=== PATIENT | male | born 1955 | race Caucasian/White ===

== ENCOUNTER 2018-05-25 14:51 | Inpatient (IN) | payer SELFPAY ==
[2018-05-25 15:48] LABS: #Basophils 0.1 thou/uL (0.0-0.2); #Eosinphils 0.1 thou/uL (0.0-0.7); #Lymphocytes 3.2 thou/uL (1.20-3.40); #Monocytes 0.7 thou/uL (0.11-0.59); #Neutrophils 8.6 thou/uL (1.40-6.50); %Basophils 0.8 % (0.0-1.0); %Eosinophils 0.7 % (0.0-10.0); %Monocytes 5.3 % (0.0-10.0); %Neutrophils 68.1 % (42.0-75.0); Hemoglobin 16.1 g/dL (14.0-18.0); Mean Corpuscular HGB CONC 34.1 g/dL (32.0-36.0); Mean Corpuscular Hemoglobin 31.1 pg (27.0-31.0); Mean Platelet Volume 8.5 fL (7.4-10.4); Platelet Count 328 thou/uL (130-400); RBC Distribution Width 12.2 % (11.5-14.5); Red Blood Cell (RBC) Count 5.17 mill/uL (4.70-6.10); White Blood Cell (WBC) Count 12.7 thou/uL (4.8-10.8)
[2018-05-25] MEDS ORDERED: Nitroglycerin 0.4 MG TAB (25 Tab Bottle) ONE (16:03)
[2018-05-25] MEDS ORDERED: Nitroglycerin 2% Ointment 1 INCH/1 GM Packet ONE (16:03)
[2018-05-25 16:14] LABS: ALT (SGPT) 15 U/L (8-55); AST (SGOT) 35 U/L (5-34); Albumin 4.3 g/dL (3.5-5.0); Alkaline Phosphatase 73 U/L (40-150); Anion Gap 12 mmol/L (10-20); BUN (Urea Nitrogen) 15 mg/dL (8.4-25.7); Bilirubin, Total 0.8 mg/dL (0.2-1.2); Calc. Creatinine Clearance 0 mL/min (70-130); Carbon Dioxide 23 mmol/L (22-29); Chloride 109 mmol/L (98-107); Estimated GFR-MDRD 71; Globulin 3.3 g/dL (2.4-3.5); Glucose 87 mg/dL (70-105); Potassium 4.1 mmol/L (3.5-5.1); Protein, Total 7.6 g/dL (6.0-8.3); Sodium 140 mmol/L (136-145)
[2018-05-25 16:20] LABS: Troponin I 1.325 ng/mL (< 0.028)
[2018-05-25] MEDS ORDERED: Iopamidol 370 76% 100 ML VIAL ONE (16:20)
[2018-05-25] MEDS ORDERED: Senokot S 8.6-50 MG TAB PO PRN (17:19)
[2018-05-25] MEDS ORDERED: Ondansetron PF 4 MG/2 ML Vial IVP PRN (17:19)
[2018-05-25 18:21] VITALS: BMI 29.2
[2018-05-25 19:21] LABS: Troponin I 7.081 ng/mL (< 0.028)
[2018-05-25] MEDS: Nitroglycerin 0.4 MG TAB (25 Tab Bottle) SL PRN ×2 (19:24→19:34)
[2018-05-25] MEDS ORDERED: Nitroglycerin 2% Ointment 1 INCH/1 GM Packet TOP SCH (20:00)
[2018-05-25] MEDS ORDERED: Clopidogrel Bisulfate 300 MG TAB PO SCH (20:00)
--- NOTE | 2018-05-25 20:03 | HP ---
PRIMARY CARE PROVIDER: None. CHIEF COMPLAINT: Chest pain. HISTORY OF PRESENT ILLNESS: Mr. Gomez is a pleasant 62-year-old gentleman, who was seen at [facility] on May 25, 2018, following transfer from the emergency room at [place]. He reports that he has a history of high blood pressure. He started eating more healthy over the last 5 months. He was on a blood pressure medication before and noticed that his blood pressure was dropping. He stopped taking the blood pressure medication. He also stopped drinking beer and eating chips. He reports that he lost weight from 232 pounds to 192 pounds over the last 5 months. He denies any tobacco use, alcohol use, or recreational drug use. He reports that he recently started using testosterone supplement [id number]. Two nights ago, he woke up with chest pain. He called EMS. He reports that the chest pain resolved. Today morning, he started having the chest pain again. He describes it as over the retrosternal region and to the right, nonradiating, pressure like, 7/10 at its worst, currently he is pain free. He denies any nausea or vomiting, but reports labored breathing with the chest pain. He is unable to recall any aggravating or relieving factors for the chest pain. He reports that he also had tingling of hands when he had the chest pain. REVIEW OF SYSTEMS: All other systems reviewed and found to be negative. PAST MEDICAL HISTORY: Significant for hypertension. PAST SURGICAL HISTORY: None. SOCIAL HISTORY: The patient denies tobacco use, alcohol use, or recreational drug use. FAMILY HISTORY: He reports that several family members on his mother's side of family had heart disease. ALLERGIES: NO KNOWN DRUG ALLERGIES. CURRENT MEDICATIONS: None. PHYSICAL EXAMINATION: GENERAL: On examination, Mr. Gomez is awake and alert, not in acute distress. VITAL SIGNS: Blood pressure is 153/93 on the left arm and 154/82 on the right arm. Pulse is 55. He is breathing at rate of 16 and saturating 99% on room air. He is afebrile. EYES: No scleral icterus. No conjunctival pallor. ENT: Moist mucosal membranes. No oropharyngeal erythema or exudates. NECK: Supple, nontender. Trachea is midline. RESPIRATORY: Accessory muscles of breathing are not active. Chest wall movements are symmetric bilaterally. Lungs are clear to auscultation without wheeze, rhonchi, or crepitations. CARDIOVASCULAR: S1 and S2 are heard, regular. Peripheral pulses palpable. No carotid bruits. No pericardial rub. ABDOMEN: Soft, nontender. Bowel sounds heard. No hepatomegaly. No splenomegaly. NEUROLOGIC: Cranial nerves 2 through 12 intact. Deep tendon reflexes 2+. MUSCULOSKELETAL: Power is 5/5 in all 4 extremities. Normal range of movement at all major extremity joints. No reproducible chest wall tenderness. SKIN: No rashes or subcutaneous nodules. LYMPHATICS: No cervical lymphadenopathy. PSYCHIATRIC: Normal mood, normal affect, the patient is oriented to person, place, and time. LABS AND INVESTIGATIONS: Mr. Gomez's labs and investigations were reviewed. I reviewed his electrocardiogram, which shows sinus bradycardia, no ST changes to suggest an acute coronary syndrome. I also reviewed his chest x-ray, which does not show any pulmonary infiltrates. He has leukocytosis with 12,700 white cells, of which 68% are neutrophils. INR 1.0. Normal sodium, normal potassium, normal creatinine; elevated troponin I of 1.325 at 1527 hours, increased from 0.266 at 1110 hours today; elevated AST of 35, otherwise unremarkable liver profile; and elevated D-dimer of 0.60. ASSESSMENT AND PLAN: Mr. Gomez is a pleasant 62-year-old gentleman, who was seen at [facility] on May 25, 2018. His problem list includes: 1. Chest pain: Most likely cardiac, although pulmonary embolism will also need to be ruled out given his elevated D-dimer. The patient has already received a dose of Lovenox, which I will continue. We will also continue him on aspirin. The patient will be admitted to the hospital for telemetry monitoring. Cardiology Service will be consulted for opinion and help with management. 2. Leukocytosis: No clear source of infection. We will continue to monitor for fever, etc. 3. Elevated D-dimer: We will check CT angiogram to rule out pulmonary embolism. 4. Hypertensive urgency: When the patient initially was transferred to this emergency room, his blood pressure was 182/98. It has improved since then. We will add p.r.n. blood pressure medications. We will also start him on beta-jaron. The patient reports intolerance to otxxcypnudn-fiqwihxyxf-qrgosa inhibitor in the past. LEVEL OF RISK: High. LEVEL OF COMPLEXITY: High. Job ID: [id number]
[2018-05-25] MEDS: Acetaminophen 325 MG TAB PO PRN (20:59)
[2018-05-25] MEDS ORDERED: Metoprolol Tartrate 25 MG TAB PO SCH (21:00)
[2018-05-25] MEDS: Atorvastatin Calcium 40 MG TAB PO SCH (21:00)
[2018-05-25] MEDS ORDERED: Enoxaparin Sodium 100 MG/ML SYRINGE SC SCH (21:00)
--- NOTE | 2018-05-25 21:23 | CT ---
CTA OF THE CHEST WITH CONTRAST 05/25/18 COMPARISON: None. HISTORY: Chest pain three days ago that resolved and started again today. Elevated troponin. TECHNIQUE: Multiple contiguous axial images were obtained in a CTA of the chest with contrast per pulmonary embo lism protocol. 3D oblique MIP reformats and direct coronal reformats were performed. FINDINGS: The pulmonary arteries are well opacified without filling defects to suggest pulmonary emboli. The he art is normal in size without focal cardiac abnormality. No hilar or mediastinal lymphadenopathy are seen. There is a calcified granuloma in the right lung base. No suspicious pulmonary nodules are seen. No f ocal infiltrates are seen in the lungs. No pneumothorax or pleural effusions are seen. The visualized subdiaphragmatic structures are unremarkable. Degenerative changes are seen in the spi ne. The chest wall soft tissues are unremarkable. IMPRESSION: No evidence of pulmonary embolism. POS: ALFONZO
[2018-05-25 22:25] LABS: Amphetamine Not Detected (NotDetected); Barbiturates Screen Not Detected (NotDetected); Benzodiazepine Screen Not Detected (NotDetected); Cocaine Metabolite Screen Not Detected (NotDetected); Medtox Control Line Valid? VALID (VALID); Medtox Reader # READER 1; Methadone Not Detected (NotDetected); Methamphetamine Not Detected (NotDetected); Opiate Screen Not Detected (NotDetected); Oxycodone Screen Not Detected (NotDetected); Phencyclidine (PCP) Not Detected (NotDetected); THC/Cannabinoid Screen Detected (NotDetected); Tricyclic Screen Not Detected (NotDetected)
[2018-05-25 22:39] LABS: Troponin I 11.147 ng/mL (< 0.028)
[2018-05-25] MEDS ORDERED: Melatonin 3 MG TAB PO PRN (22:50)
[2018-05-26] MEDS: Acetaminophen 325 MG TAB PO PRN ×3 (00:53→17:53)
[2018-05-26 05:03] LABS: #Basophils 0.1 thou/uL (0.0-0.2); #Eosinphils 0.2 thou/uL (0.0-0.7); #Lymphocytes 2.5 thou/uL (1.20-3.40); #Monocytes 0.9 thou/uL (0.11-0.59); #Neutrophils 9.3 thou/uL (1.40-6.50); %Basophils 0.7 % (0.0-1.0); %Eosinophils 1.5 % (0.0-10.0); %Lymphocytes 19.1 % (21.0-51.0); %Monocytes 6.7 % (0.0-10.0); Hemoglobin 15.1 g/dL (14.0-18.0); Mean Corpuscular HGB CONC 34.2 g/dL (32.0-36.0); Mean Corpuscular Hemoglobin 31.3 pg (27.0-31.0); Mean Corpuscular Volume 91.3 fL (78.0-98.0); Mean Platelet Volume 8.7 fL (7.4-10.4); Platelet Count 306 thou/uL (130-400); RBC Distribution Width 12.2 % (11.5-14.5); Red Blood Cell (RBC) Count 4.82 mill/uL (4.70-6.10); White Blood Cell (WBC) Count 12.9 thou/uL (4.8-10.8)
[2018-05-26 05:29] LABS: Troponin I 12.334 ng/mL (< 0.028)
[2018-05-26 05:41] LABS: Anion Gap 13 mmol/L (10-20); Chloride 109 mmol/L (98-107); Potassium 4.2 mmol/L (3.5-5.1); Sodium 139 mmol/L (136-145)
[2018-05-26 05:55] LABS: BUN (Urea Nitrogen) 13 mg/dL (8.4-25.7); Calc. Creatinine Clearance 105 mL/min (70-130); Calcium 9.5 mg/dL (7.8-10.44); Carbon Dioxide 21 mmol/L (22-29); Cardiac Risk 8.1 (Less than 4.5); Cholesterol 195 mg/dl (< 200 Desired); Estimated GFR-MDRD 84; Glucose 106 mg/dL (70-105); HDL Cholesterol 24 mg/dL (>60 Neg Risk); LDL Cholesterol, Calculated 125 mg/dL; Magnesium 2.1 mg/dL (1.6-2.6); Triglycerides 229 mg/dL (Less than 150)
[2018-05-26] MEDS ORDERED: Sodium Chloride 0.9% 1,000 ML IV SCH ×2 (07:45→11:04)
[2018-05-26] MEDS ORDERED: Communication Order-Pharmacy FS SCH (07:45)
[2018-05-26] MEDS: Aspirin 325 mg Enteric Coated Tablet PO SCH (08:07)
[2018-05-26] MEDS: Lisinopril 2.5 MG TAB PO SCH (08:07)
[2018-05-26] MEDS ORDERED: Lidocaine 1% (PF) 30 ML VIAL ONE (08:50)
[2018-05-26] MEDS ORDERED: Heparin 10,000 UNITS/1 ML VIAL ONE (08:57)
[2018-05-26] MEDS ORDERED: Nitroglycerin 2% Ointment 1 INCH/1 GM Packet TOP SCH (09:00)
[2018-05-26] MEDS ORDERED: Clopidogrel Bisulfate 75 MG TAB PO SCH (09:00)
[2018-05-26] MEDS ORDERED: Midazolam HCl 2 mg/2 ml Vial ONE (09:54)
[2018-05-26] MEDS ORDERED: Fentanyl 100 MCG/2 ML VIAL ONE (09:54)
[2018-05-26] MEDS ORDERED: Iopamidol 370 76% 50 ML VIAL FS ONE (09:56)
[2018-05-26] MEDS ORDERED: Iopamidol 370 76% 100 ML VIAL ONE (09:56)
[2018-05-26] MEDS ORDERED: Protamine Sulfate 50 MG/5 ML VIAL ONE (10:40)
[2018-05-26] MEDS ORDERED: Acetaminophen/Codeine 30-300mg Tablet PO PRN ×2 (11:03)
[2018-05-26] MEDS ORDERED: Nitroglycerin 0.4 MG TAB (25 Tab Bottle) SL PRN (11:03)
[2018-05-26] MEDS ORDERED: traMADol HCl 50 MG TAB PO PRN (11:03)
[2018-05-26] MEDS ORDERED: Sodium Chloride 0.9% 200 ML IV SCH (11:15)
--- NOTE | 2018-05-26 11:18 | CON ---
DATE OF CONSULTATION: HISTORY OF PRESENT ILLNESS: Rene Gomez is a 62-year-old white male admitted with chest pain and non-STEMI. He has had high blood pressure for many years and was on verapamil 180 b.i.d. He stopped drinking beer and eating salty foods, and lost weight from 232 down to 192 pounds. He then noticed 5 or 6 months ago that he would have low blood pressure. He reduced the verapamil to 180 daily, and then one half of the tablet daily and ultimately stopped blood pressure medicine 5 months ago. He has not had any chest discomfort until 3:30 in the morning on May 24 when he awoke with chest pressure. Blood pressure was high, and he took one of his blood pressure medicines. After 45 minutes, he continued to have pain, called paramedics and they came to his house and his chest pain resolved. They recommended that he go to emergency room; however, he refused to go. He did fine the rest of May 24. Then, on May 25, he did his usual workout, took a shower , and was drinking coffee and again had same type of discomfort. He called paramedics and this time, he agreed to go to emergency room in [place]. He was see there and then transferred here for further evaluation. There were no acute changes on his EKG. With his chest discomfort, he was somewhat short of breath. Denied any nausea, vomiting, or diaphoresis. Last night, he again had episode of chest discomfort, relieved with sublingual nitroglycerin. PAST MEDICAL HISTORY: Hypertension. He denies any history of diabetes or hypercholesterolemia. MEDICATIONS: Essentially none, although would take verapamil over the last couple of days when he had chest discomfort, his blood pressure was elevated. OPERATIONS: None. ALLERGIES: NONE. SOCIAL HISTORY: He smoked for 4 to 5 years, stopped 30 years ago. He does not drink any alcohol at the present time. FAMILY HISTORY: Negative for coronary artery disease in the immediate family. REVIEW OF SYSTEMS: A 12-point review of systems otherwise is unremarkable. PHYSICAL EXAMINATION: VITAL SIGNS: Blood pressure 132/80, pulse of 58. At times, he does have heart rates in the upper 40s and has had an episode of non-sustained ventricular tachycardia of 17 beats. HEENT: PERRLA. NECK: Supple. CHEST: Clear. CARDIAC: S1 and S2 normal without any S3, S4, or murmurs. Carotid upstrokes normal without bruits. ABDOMEN: Normal bowel sounds without tenderness. EXTREMITIES: Reveal no clubbing, cyanosis, or edema. NEUROLOGICAL: Grossly intact. SKIN: Warm and dry. There is a lipoma over the thoracic spine approximately 1 centimeter in diameter. LABORATORY DATA: EKG in [place] revealed normal sinus rhythm with poor R- wave progression, slightly inverted T-wave in leads 3 and F. Subsequent EKGs here revealed sinus bradycardia with the development of inverted T-wave in 2, 3, and F. Hemoglobin 15.1, hematocrit 44.0, white count 12,900, platelets 306,000. D- dimer 0.60. Sodium 139, potassium 4.9, chloride 109, carbon dioxide 21, BUN 13, creatinine 0.92, glucose 106, troponin I is up to 12.334, cholesterol 195, triglycerides 229, HDL 24, LDL 25. CK-MB 32. Chest x-ray is unremarkable. With the elevated D-dimer, he underwent chest CTA which revealed no evidence of pulmonary embolism. IMPRESSION: 1. Non-sustained ventricular tachycardia. 2. NSTEMI, probably inferior with peak troponin I of 12.334. 3. Hypertension, somewhat noncompliant with medications. 4. Hypercholesterolemia. 5. Hypertriglyceridemia. 6. Distant smoker. PLAN: Situation was discussed with Mr. Gomez. It was recommended that he undergo cardiac catheterization today with an episode of chest discomfort last night as well as non-sustained ventricular tachycardia. Risk of catheterization were discussed including , myocardial infarction, dye reaction, accidental vascular injury , CVA, transfusion, limb loss, renal loss, etc. Risk of intervention with PTCA and stent placement were discussed including , myocardial infarction, emergent CABG, restenosis, stent thrombosis, etc. With his noncompliance with medications and lack of insurance, I would only place a bare-metal stent. Ideally, with non-STEMI, Brilinta would be his best choice. However, I doubt that he would be able to afford this medication and so he will be placed on Plavix. He did receive a dose of Lovenox 1 mg/kg last night at 9 p.m. and so we want to wait at least 12 hours after that prior to taking him to the [employer] [facility]. Job ID: [id number] [facility] HOSPITALYennifer
--- NOTE | 2018-05-26 12:26 | PDOC.PN ---
- Subjective Encounter Start Date: 05/26/18 Encounter Start Time: 07:00 Pt seen for followup re: NSTEMI. Denies any chest pain at this time. - Objective MAR Reviewed: Yes Vital Signs & Weight: Vital Signs (12 hours) Temp Pulse Resp BP Pulse Ox 05/26/18 11:52 98.0 F 56 L 18 153/81 H 97 05/26/18 11:03 53 L 16 153/81 H 98 05/26/18 08:07 58 L 05/26/18 08:04 98.9 F 58 L 18 135/78 97 05/26/18 03:00 97.5 F L 58 L 15 132/80 99 Weight Weight 192 lb I&O: 05/25/18 05/26/18 05/27/18 06:59 06:59 06:59 Intake Total 400 Output Total 425 Balance -25 Result Diagrams: 05/26/18 04:22 05/26/18 04:22 Additional Labs: Accuchecks 05/26/18 03:02 POC Glucose 109 EKG Reviewed by me: Yes (Tele: NSR) Phys Exam - Physical Examination Constitutional: NAD HEENT: moist MMs, sclera anicteric, oral pharynx no lesions, 2+ tonsils Neck: no nodes, no JVD, supple, full ROM Respiratory: clear to auscultation bilateral Cardiovascular: RRR, no rub S1, S2 Gastrointestinal: soft Neurological: moves all 4 limbs Psychiatric: normal affect, A&O x 3 Dx/Plan (1) NSTEMI (non-ST elevated myocardial infarction) Code(s): I21.4 - NON-ST ELEVATION (NSTEMI) MYOCARDIAL INFARCTION Status: Acute Comment: started on aspirin. For cath today. (2) HTN (hypertension) Code(s): I10 - ESSENTIAL (PRIMARY) HYPERTENSION Status: Chronic Comment: monitor vital signs and titrate antihypertensives as needed - Plan * . Review of Systems - Review of Systems Constitutional: negative: fever, chills, sweats, weakness, malaise Respiratory: negative: Cough, Dry, Shortness of Breath, Hemoptysis, SOB with Excertion, Pleuritic Pain, Sputum, Wheezing Cardiovascular: negative: chest pain, palpitations, orthopnea, paroxysmal nocturnal dyspnea, edema, light headedness Gastrointestinal: negative: Nausea, Vomiting, Abdominal Pain, Diarrhea, Constipation, Melena, Hematochezia Genitourinary: negative: Dysuria, Frequency, Incontinence, Hematuria, Retention Skin: negative: Rash, Lesions, Zenon, Bruising - Medications/Allergies Allergies/Adverse Reactions: Allergies Allergy/AdvReac Type Severity Reaction Status Date / Time No Known Drug Allergies Allergy Verified 05/25/18 17:07 Medications: Current Medications Acetaminophen (Tylenol) 650 mg PO Q4H PRN PRN Reason: Mild Pain (1-3)/FEVER Last Admin: 05/26/18 08:07 Dose: 650 mg Acetaminophen/Codeine Phosphate (Tylenol #3) 1 tab PO Q4H PRN PRN Reason: Mild Pain (1-3) Acetaminophen/Codeine Phosphate (Tylenol #3) 2 tab PO Q4H PRN PRN Reason: Moderate Pain (4-6) Last Admin: 05/26/18 11:54 Dose: 2 tab Aspirin (Ecotrin) 325 mg PO DAILY [facility] Last Admin: 05/26/18 08:07 Dose: 325 mg Atorvastatin Calcium (Lipitor) 40 mg PO HS [facility] Last Admin: 05/25/18 21:00 Dose: 40 mg Sodium Chloride (Normal Saline 0.9%) 200 mls @ 0 mls/hr IV ONE [facility] Stop: 05/26/18 23:00 Sodium Chloride (Normal Saline 0.9%) 1,000 mls @ 125 mls/hr IV .Q8H [facility] Stop: 05/28/18 13:59 Lisinopril (Zestril) 2.5 mg PO DAILY [facility] Last Admin: 05/26/18 08:07 Dose: 2.5 mg Melatonin (Melatonin) 3 mg PO HSPRN PRN PRN Reason: Insomnia Last Admin: 05/25/18 23:15 Dose: 3 mg Miscellaneous Information (Communication Order-Pharmacy) 0 each FS ONE [facility] Stop: 05/26/18 15:00 Morphine Sulfate (Morphine) 2 mg SLOW IVP Q5MIN PRN PRN Reason: Chest Pain Nitroglycerin (Nitro-Bid 2% Ointment) 2 inch TOP QID [facility] Nitroglycerin (Nitrostat) 0.4 mg SL Q5MIN PRN PRN Reason: Chest Pain Ondansetron HCl (Zofran) 4 mg IVP Q6H PRN PRN Reason: Nausea/Vomiting Last Admin: 05/26/18 03:06 Dose: 4 mg Senna/Docusate Sodium (Senokot S) 2 tab PO BID PRN PRN Reason: Constipation Sodium Chloride (Flush - Normal Saline) 10 ml IVF Q12HR [facility] Last Admin: 05/26/18 08:06 Dose: 10 ml Sodium Chloride (Flush - Normal Saline) 10 ml IVF PRN PRN PRN Reason: Saline Flush Last Admin: 05/26/18 03:08 Dose: 10 ml Tramadol HCl (Ultram) 50 mg PO Q6H PRN PRN Reason: Moderate Pain (4-6)
[2018-05-26] MEDS: Nitroglycerin 2% Ointment 1 INCH/1 GM Packet TOP SCH ×3 (14:03→19:59)
[2018-05-26] MEDS: Atorvastatin Calcium 40 MG TAB PO SCH (19:59)
[2018-05-27] MEDS: Acetaminophen 325 MG TAB PO PRN ×3 (03:22→15:19)
[2018-05-27 05:01] LABS: #Basophils 0.1 thou/uL (0.0-0.2); #Eosinphils 0.2 thou/uL (0.0-0.7); #Lymphocytes 2.4 thou/uL (1.20-3.40); #Neutrophils 10.4 thou/uL (1.40-6.50); %Basophils 0.5 % (0.0-1.0); %Eosinophils 1.7 % (0.0-10.0); %Lymphocytes 16.9 % (21.0-51.0); %Monocytes 7.3 % (0.0-10.0); %Neutrophils 73.6 % (42.0-75.0); Hemoglobin 14.7 g/dL (14.0-18.0); Mean Corpuscular HGB CONC 34.1 g/dL (32.0-36.0); Mean Corpuscular Hemoglobin 31.2 pg (27.0-31.0); Mean Corpuscular Volume 91.6 fL (78.0-98.0); Mean Platelet Volume 8.4 fL (7.4-10.4); Platelet Count 288 thou/uL (130-400); RBC Distribution Width 12.2 % (11.5-14.5); Red Blood Cell (RBC) Count 4.71 mill/uL (4.70-6.10); White Blood Cell (WBC) Count 14.1 thou/uL (4.8-10.8)
[2018-05-27 05:15] LABS: Anion Gap 10 mmol/L (10-20); BUN (Urea Nitrogen) 14 mg/dL (8.4-25.7); Calc. Creatinine Clearance 105 mL/min (70-130); Calcium 9.4 mg/dL (7.8-10.44); Carbon Dioxide 23 mmol/L (22-29); Chloride 108 mmol/L (98-107); Estimated GFR-MDRD 84; Glucose 101 mg/dL (70-105); Potassium 4.1 mmol/L (3.5-5.1); Sodium 137 mmol/L (136-145)
[2018-05-27] MEDS: Aspirin 325 mg Enteric Coated Tablet PO SCH (08:23)
[2018-05-27] MEDS: Lisinopril 2.5 MG TAB PO SCH (08:23)
[2018-05-27] MEDS ORDERED: Communication Order-Pharmacy FS SCH (09:42)
[2018-05-27] MEDS ORDERED: ALPRAZolam 0.25 MG TAB PO PRN (09:44)
[2018-05-27] MEDS: Nitroglycerin 2% Ointment 1 INCH/1 GM Packet TOP SCH ×4 (09:58→20:04)
[2018-05-27 10:13] LABS: Hemoglobin A1c 4.7 % (4.0-6.0)
--- NOTE | 2018-05-27 11:33 | PDOC.PN ---
- Subjective Encounter Start Date: 05/27/18 Encounter Start Time: 07:00 Pt seen for followup re: NSTEMI. Denies chest pain, shortness of breath, fevers or chills. - Objective MAR Reviewed: Yes Vital Signs & Weight: Vital Signs (12 hours) Temp Pulse Resp BP Pulse Ox 05/27/18 08:23 98.1 F 68 18 171/86 H 98 05/27/18 05:40 99 05/27/18 04:00 98.6 F 58 L 19 133/78 99 05/27/18 00:00 98.5 F 68 19 117/69 98 Weight Weight 196 lb 9.6 oz I&O: 05/26/18 05/27/18 05/28/18 06:59 06:59 06:59 Intake Total 400 180 Output Total 425 Balance -25 180 Result Diagrams: 05/27/18 04:46 05/27/18 04:46 EKG Reviewed by me: Yes (Tele: NSR) Phys Exam - Physical Examination Constitutional: NAD HEENT: moist MMs, sclera anicteric, oral pharynx no lesions, 2+ tonsils Neck: no nodes, no JVD, supple, full ROM Respiratory: clear to auscultation bilateral Cardiovascular: RRR, no rub S1, S2 Gastrointestinal: soft, non-tender, no distention, positive bowel sounds Neurological: moves all 4 limbs Psychiatric: normal affect Dx/Plan (1) NSTEMI (non-ST elevated myocardial infarction) Code(s): I21.4 - NON-ST ELEVATION (NSTEMI) MYOCARDIAL INFARCTION Status: Acute Comment: 3-vessel CAD on cath. CV surgery consulted. Continue aspirin. (2) HTN (hypertension) Code(s): I10 - ESSENTIAL (PRIMARY) HYPERTENSION Status: Chronic Comment: titrate antihypertensives as needed - Plan * . Review of Systems - Review of Systems Constitutional: negative: fever, chills, sweats, weakness, malaise Cardiovascular: negative: chest pain, palpitations, orthopnea, paroxysmal nocturnal dyspnea, edema, light headedness Gastrointestinal: negative: Nausea, Vomiting, Abdominal Pain, Diarrhea, Constipation, Melena, Hematochezia Genitourinary: negative: Dysuria, Frequency, Incontinence, Hematuria, Retention Musculoskeletal: negative: Neck Pain, Shoulder Pain, Arm Pain, Back Pain, Hand Pain, Leg Pain, Foot Pain Skin: negative: Rash, Lesions, Zenon, Bruising - Medications/Allergies Allergies/Adverse Reactions: Allergies Allergy/AdvReac Type Severity Reaction Status Date / Time No Known Drug Allergies Allergy Verified 05/25/18 17:07 Medications: Current Medications Acetaminophen (Tylenol) 650 mg PO Q4H PRN PRN Reason: Mild Pain (1-3)/FEVER Last Admin: 05/27/18 08:23 Dose: 650 mg Acetaminophen/Codeine Phosphate (Tylenol #3) 1 tab PO Q4H PRN PRN Reason: Mild Pain (1-3) Acetaminophen/Codeine Phosphate (Tylenol #3) 2 tab PO Q4H PRN PRN Reason: Moderate Pain (4-6) Last Admin: 05/26/18 11:54 Dose: 2 tab Alprazolam (Xanax) 0.25 mg PO TIDPRN PRN PRN Reason: Anxiety Aspirin (Ecotrin) 325 mg PO DAILY [facility] Last Admin: 05/27/18 08:23 Dose: 325 mg Atorvastatin Calcium (Lipitor) 40 mg PO HS [facility] Last Admin: 05/26/18 19:59 Dose: 40 mg Sodium Chloride (Normal Saline 0.9%) 1,000 mls @ 125 mls/hr IV .Q8H [facility] Stop: 05/28/18 13:59 Lisinopril (Zestril) 2.5 mg PO DAILY [facility] Last Admin: 05/27/18 08:23 Dose: 2.5 mg Melatonin (Melatonin) 3 mg PO HSPRN PRN PRN Reason: Insomnia Last Admin: 05/25/18 23:15 Dose: 3 mg Miscellaneous Information (Communication Order-Pharmacy) 1 each FS ONE ONE Stop: 05/27/18 09:43 Morphine Sulfate (Morphine) 2 mg SLOW IVP Q5MIN PRN PRN Reason: Chest Pain Nitroglycerin (Nitro-Bid 2% Ointment) 2 inch TOP QID [facility] Last Admin: 05/27/18 09:58 Dose: 2 inch Nitroglycerin (Nitrostat) 0.4 mg SL Q5MIN PRN PRN Reason: Chest Pain Ondansetron HCl (Zofran) 4 mg IVP Q6H PRN PRN Reason: Nausea/Vomiting Last Admin: 05/26/18 03:06 Dose: 4 mg Senna/Docusate Sodium (Senokot S) 2 tab PO BID PRN PRN Reason: Constipation Sodium Chloride (Flush - Normal Saline) 10 ml IVF Q12HR [facility] Last Admin: 05/26/18 20:00 Dose: 10 ml Sodium Chloride (Flush - Normal Saline) 10 ml IVF PRN PRN PRN Reason: Saline Flush Last Admin: 05/26/18 03:08 Dose: 10 ml Tramadol HCl (Ultram) 50 mg PO Q6H PRN PRN Reason: Moderate Pain (4-6)
[2018-05-27] MEDS: Atorvastatin Calcium 40 MG TAB PO SCH (20:04)
[2018-05-28] MEDS: Lisinopril 2.5 MG TAB PO SCH (05:59)
[2018-05-28] MEDS ORDERED: Sodium Chloride 0.9% 1,000 ML IV SCH (06:00)
[2018-05-28] MEDS ORDERED: CEFAZOLIN 2 GM/50 ML BAG ONE (06:17)
[2018-05-28 06:29] LABS: #Basophils 0.1 thou/uL (0.0-0.2); #Eosinphils 0.2 thou/uL (0.0-0.7); #Lymphocytes 1.9 thou/uL (1.20-3.40); #Neutrophils 8.3 thou/uL (1.40-6.50); %Basophils 0.4 % (0.0-1.0); %Lymphocytes 16.3 % (21.0-51.0); %Monocytes 8.5 % (0.0-10.0); %Neutrophils 72.7 % (42.0-75.0); Hemoglobin 14.6 g/dL (14.0-18.0); Mean Corpuscular HGB CONC 32.8 g/dL (32.0-36.0); Mean Corpuscular Hemoglobin 29.9 pg (27.0-31.0); Mean Corpuscular Volume 91.4 fL (78.0-98.0); Mean Platelet Volume 8.7 fL (7.4-10.4); Platelet Count 277 thou/uL (130-400); RBC Distribution Width 12.2 % (11.5-14.5); Red Blood Cell (RBC) Count 4.88 mill/uL (4.70-6.10); White Blood Cell (WBC) Count 11.4 thou/uL (4.8-10.8)
[2018-05-28 06:36] LABS: Anion Gap 12 mmol/L (10-20); BUN (Urea Nitrogen) 13 mg/dL (8.4-25.7); Calc. Creatinine Clearance 102 mL/min (70-130); Calcium 9.7 mg/dL (7.8-10.44); Carbon Dioxide 24 mmol/L (22-29); Chloride 105 mmol/L (98-107); Estimated GFR-MDRD 81; Glucose 104 mg/dL (70-105); Potassium 4.1 mmol/L (3.5-5.1); Sodium 137 mmol/L (136-145)
[2018-05-28] MEDS ORDERED: Albumin 5% 500 ML ONE (06:36)
[2018-05-28] MEDS ORDERED: Midazolam HCl 2 mg/2 ml Vial ONE ×3 (06:46→09:13)
[2018-05-28] MEDS ORDERED: Fentanyl 250 MCG/5 ML VIAL ONE (06:46)
[2018-05-28] MEDS ORDERED: Norepinephrine 8 MG/0.9% NS 250 ML ONE (06:46)
[2018-05-28] MEDS ORDERED: Dexmedetomidine 200 MCG/2 ML VIAL ONE (06:46)
[2018-05-28] MEDS ORDERED: Vecuronium 10 MG VIAL ONE ×2 (06:46→14:05)
[2018-05-28] MEDS ORDERED: Heparin 10,000 UNITS/1 ML VIAL 30,000 UNITS in Sodium Chloride 0.9% 1,000 ML FS SCH (07:00)
--- NOTE | 2018-05-28 07:50 | CON ---
DATE OF CONSULTATION: HISTORY OF PRESENT ILLNESS: This is a pleasant 62-year-old gentleman with a history of hypertension. He had significant episode of chest pain about 3 to 4 days ago, seen by EMS, but refused transport to the hospital. Had recurrence of pain, brought to the hospital on 05/25, where he had a troponin elevation and then he underwent cardiac catheterization today after a troponin peak of 12. He had severe triple-vessel coronary artery disease with preserved left ventricular systolic function and a rather unremarkable EKG. He has no real family history of heart disease, although his mother had hypertension. He denies any history of elevated lipid levels, but admits to not seeing a doctor in the past, obtained his blood pressure medicines from a [facility] in [place]. He is a nonsmoker except for occasional marijuana use about once a week. CURRENT MEDICATIONS: Include: 1. Lisinopril 2.5. 2. Atorvastatin 40. 3. Aspirin 325. ALLERGIES: NO KNOWN ALLERGIES. SOCIAL HISTORY: He lives alone in [place]. He has a son, who lives in [place]. He is unemployed, did do air conditioning work in the past. REVIEW OF SYSTEMS: The patient admits to about a 25-pound weight loss over the last year due to diet and exercise. PHYSICAL EXAMINATION: GENERAL: On examination, he is alert, cooperative gentleman. VITAL SIGNS: Weight 196, height 5 feet 7 inches. NECK: No carotid bruits. LUNGS: Clear to auscultation. CARDIAC: Regular rate and rhythm. No murmurs. ABDOMEN: Soft, obese, nontender. EXTREMITIES: He has palpable +2 tibial pulses bilaterally. He has palpable radial pulses with a good Alexandro's test in his left arm. I have reviewed his cardiac catheterization and he has rather diffuse distal disease. His LAD has moderate 50% to 60% disease proximally and then irregularities near the apex. He has a single diagonal with a high-grade lesion, it is not a particularly large vessel. His circumflex consist of a main OM with critically diseased small branch vessels. The distal circumflex, which is still dominant, consist of a bifurcated small OM that ghosts in and then a small PDA. The right coronary system has a high-grade stenosis and then there was a small PDA distally. Potential sites for grafting include the LAD, diagonal, obtuse marginal, and right coronary artery. He will be in incomplete revascularization. Informed consent has been obtained from the patient including the slightly increased risk of bleeding due to Plavix loading. Job ID: [id number]
[2018-05-28] MEDS ORDERED: Insulin Regular 300 UNITS/3 ML VIAL ONE (13:18)
[2018-05-28] MEDS ORDERED: Potassium Chloride 60 MEQ/30 ML VIAL ONE (14:05)
[2018-05-28] MEDS ORDERED: Nitroglycerin 50 MG/250 ML BOT ONE (14:05)
[2018-05-28] MEDS ORDERED: Cardioplegic Soln 1,000 ML BAG ONE (14:05)
[2018-05-28] MEDS ORDERED: Mannitol 12.5 GM/50 ML ONE (14:05)
[2018-05-28] MEDS ORDERED: Protamine Sulfate 250 MG/25 ML VIAL ONE (14:05)
[2018-05-28] MEDS ORDERED: Magnesium 5 GM/10 ML VIAL ONE (14:05)
[2018-05-28] MEDS ORDERED: Calcium Chloride 1 GM/10 ML Abboject SYRINGE ONE (14:05)
[2018-05-28] MEDS ORDERED: Heparin 5,000 UNITS/ML VIAL ONE (14:05)
[2018-05-28] MEDS ORDERED: Dexamethasone 20 MG/5 ML VIAL ONE (14:05)
[2018-05-28] MEDS ORDERED: Papaverine 60 MG/2 ML VIAL ONE (14:05)
[2018-05-28] MEDS ORDERED: Lidocaine 2% PF 100 mg/5 ml Syringe ONE (14:05)
[2018-05-28] MEDS ORDERED: Sodium Bicarb 50 MEQ/50 ML VIAL ONE (14:05)
[2018-05-28] MEDS ORDERED: Heparin 30,000 units/30 ml VIAL ONE (14:05)
[2018-05-28] MEDS ORDERED: Thrombin 5000 UNITS/5 ML VIAL ONE (14:05)
[2018-05-28] MEDS ORDERED: Aminocaproic Acid 5 GM/20 ML VIAL ONE (14:05)
[2018-05-28] MEDS ORDERED: Ondansetron PF 4 MG/2 ML Vial ONE (14:05)
[2018-05-28] MEDS ORDERED: PROPOFOL 200 MG/20 ML VIAL ONE (14:05)
[2018-05-28] MEDS ORDERED: ePHEDrine/0.9% NaCl/PF SYRINGE 50 mg/10 ml ONE (14:05)
[2018-05-28] MEDS ORDERED: Acetaminophen 325 MG TAB PO PRN (14:33)
[2018-05-28] MEDS ORDERED: Hetastarch 6% 500 ML 500 ML IVPB PRN (14:33)
[2018-05-28] MEDS ORDERED: Fentanyl 100 MCG/2 ML VIAL SLOW IVP PRN (14:33)
[2018-05-28] MEDS ORDERED: Bisacodyl 5 MG TAB PO PRN (14:33)
[2018-05-28] MEDS ORDERED: Promethazine HCl 25 MG/ML VIAL IM PRN (14:33)
[2018-05-28] MEDS ORDERED: hydrALAZINE 20 MG/ML VIAL SLOW IVP PRN (14:33)
[2018-05-28] MEDS ORDERED: Bisacodyl 10 MG SUPP PR PRN (14:33)
[2018-05-28] MEDS ORDERED: Post-Op Insulin Drip Protocol IVPB ONE (14:33)
[2018-05-28] MEDS ORDERED: Morphine 2 MG/ML SYRINGE SLOW IVP PRN (14:33)
[2018-05-28] MEDS ORDERED: Norepinephrine 8 MG/0.9% NS 250 ML IVPB PRN (14:33)
[2018-05-28] MEDS ORDERED: HYDROcodone/Acetaminophen 5/325 mg Tablet PO PRN (14:33)
[2018-05-28] MEDS ORDERED: Nitroglycerin 50 MG/250 ML BOT 250 ML IVPB PRN (14:33)
[2018-05-28] MEDS ORDERED: Mag-Al 1200 mg/1200 mg/30 ML UDCUP PO PRN (14:33)
[2018-05-28] MEDS ORDERED: DOPamine 400 MG/D5W 250 ML 250 ML IVPB PRN (14:33)
[2018-05-28] MEDS ORDERED: Potassium Chloride 20 MEQ/100 ML PREMIX BAG IVPB PRN (14:33)
[2018-05-28] MEDS ORDERED: niCARdipine HCl 25 MG in Sodium Chloride 0.9% 250 ML 240 ML IVPB PRN (14:33)
[2018-05-28] MEDS ORDERED: Dextrose 50% Abboject 50 ML SYRINGE SLOW IVP PRN (14:42)
[2018-05-28] MEDS ORDERED: Dextrose 5% in Water 1,000 ML IV PRN (14:42)
[2018-05-28 14:53] LABS: #Eosinphils 0.2 thou/uL (0.0-0.7); #Lymphocytes 1.3 thou/uL (1.20-3.40); #Neutrophils 13.3 thou/uL (1.40-6.50); %Basophils 0.2 % (0.0-1.0); %Eosinophils 1.2 % (0.0-10.0); %Lymphocytes 8.4 % (21.0-51.0); %Monocytes 6.1 % (0.0-10.0); %Neutrophils 84.1 % (42.0-75.0); Hemoglobin 13.6 g/dL (14.0-18.0); Mean Corpuscular HGB CONC 33.7 g/dL (32.0-36.0); Mean Platelet Volume 8.6 fL (7.4-10.4); Platelet Count 215 thou/uL (130-400); RBC Distribution Width 12.2 % (11.5-14.5); Red Blood Cell (RBC) Count 4.38 mill/uL (4.70-6.10); White Blood Cell (WBC) Count 15.8 thou/uL (4.8-10.8)
[2018-05-28 14:56] LABS: INR-International Normal Ratio 1.3; PTT 31.5 SEC (22.9-36.1); Prothrombin Time 16.5 SEC (12.0-14.7)
[2018-05-28 15:22] LABS: Anion Gap 11 mmol/L (10-20); BUN (Urea Nitrogen) 11 mg/dL (8.4-25.7); Calc. Creatinine Clearance 119 mL/min (70-130); Calcium 8.2 mg/dL (7.8-10.44); Carbon Dioxide 22 mmol/L (22-29); Chloride 112 mmol/L (98-107); Estimated GFR-MDRD Greater than 90; Glucose 107 mg/dL (70-105); Potassium 4.2 mmol/L (3.5-5.1); Sodium 141 mmol/L (136-145)
[2018-05-28] MEDS: Fentanyl 100 MCG/2 ML VIAL SLOW IVP PRN ×3 (15:51→19:30)
--- NOTE | 2018-05-28 15:51 | PDOC.PN ---
- Subjective Encounter Start Date: 05/28/18 Encounter Start Time: 15:49 Pt seen for followup re: NSTEMI. Sleepy but arousable, reports chest pain. - Objective MAR Reviewed: Yes Vital Signs & Weight: Vital Signs (12 hours) Pulse BP Pulse Ox 05/28/18 15:00 100 05/28/18 14:33 71 137/78 05/28/18 05:59 73 119/71 Weight Weight 191 lb 11.2 oz Most Recent Monitor Data Heart Rate from ECG 66 NIBP 138/93 NIBP BP-Mean 108 Respiration from ECG 14 SpO2 100 I&O: 05/27/18 05/28/18 05/29/18 06:59 06:59 06:59 Intake Total 180 2580 Balance 180 2580 Result Diagrams: 05/28/18 14:41 05/28/18 14:41 Additional Labs: Accuchecks 05/28/18 14:40 POC Glucose 103 EKG Reviewed by me: Yes (Tele: NSR) Phys Exam - Physical Examination Obese HEENT: moist MMs Neck: supple Respiratory: clear to auscultation bilateral Cardiovascular: RRR Gastrointestinal: soft Neurological: moves all 4 limbs Psychiatric: normal affect Dx/Plan (1) NSTEMI (non-ST elevated myocardial infarction) Code(s): I21.4 - NON-ST ELEVATION (NSTEMI) MYOCARDIAL INFARCTION Status: Acute Comment: s/p CABG today (2) HTN (hypertension) Code(s): I10 - ESSENTIAL (PRIMARY) HYPERTENSION Status: Chronic Comment: titrate antihypertensives as needed - Plan * . Review of Systems - Review of Systems Cardiovascular: chest pain. negative: palpitations, orthopnea, paroxysmal nocturnal dyspnea, edema, light headedness - Medications/Allergies Allergies/Adverse Reactions: Allergies Allergy/AdvReac Type Severity Reaction Status Date / Time No Known Drug Allergies Allergy Verified 05/25/18 17:07 Medications: Current Medications Acetaminophen (Tylenol) 650 mg PO Q6H PRN PRN Reason: Headache/Fever Or Mild Pain Hydrocodone Bitart/Acetaminophen ([place] 5/325) 1 tab PO Q4H PRN PRN Reason: Moderate Pain (4-6) Hydrocodone Bitart/Acetaminophen ([place] 5/325) 2 tab PO Q4H PRN PRN Reason: Severe Pain (7-10) Al Hydroxide/Mg Hydroxide (Maalox) 30 ml PO Q4H PRN PRN Reason: Indigestion Albumin Human (Albumin 5%) 12.5 gm IVPB Q6H PRN PRN Reason: To Maintain SBP> 90 mmHG Stop: 05/29/18 14:34 Albumin Human (Albumin 5%) 25 gm IVPB Q6H PRN PRN Reason: To Maintain SBP > 90 mmHG Stop: 05/29/18 14:34 Aspirin (Aspirin) 325 mg PO DAILY [facility] Bisacodyl (Dulcolax) 10 mg PO Q12H PRN PRN Reason: Constipation Bisacodyl (Dulcolax) 10 mg [place] Q12H PRN PRN Reason: Constipation Cefazolin Sodium/Dextrose (Ancef 2 Gm/50 Ml) 2 gm IVPB 0700,1500,2300 [facility] Stop: 05/29/18 07:01 Dextrose/Water (Dextrose 50%) 25 gm SLOW IVP PRN PRN PRN Reason: PER HYPOGLYCEMIC PROTOCOL Famotidine (Pepcid) 20 mg SLOW IVP Q12HR [facility] Fentanyl (Sublimaze) 25 mcg SLOW IVP Q2H PRN PRN Reason: Moderate Pain (4-6) Stop: 05/30/18 14:08 Fentanyl (Sublimaze) 50 mcg SLOW IVP Q2H PRN PRN Reason: Severe Pain (7-10) Stop: 05/30/18 14:08 Glucagon (Glucagon) 1 mg SC PRN PRN PRN Reason: PER HYPOGLYCEMIC PROTOCOL Guaifenesin/Dextromethorphan (Robitussin Dm) 15 ml PO Q4H PRN PRN Reason: Cough Hydralazine HCl (Apresoline) 10 mg SLOW IVP Q6H PRN PRN Reason: To Maintain SBP< 140mmHG Dopamine HCl/Dextrose (Dopamine/D5w) 250 mls @ 0 mls/hr IVPB PRN PRN; Protocol PRN Reason: To maintain SBP > 90 mmHG Hetastarch/Sodium Chloride (Hespan) 500 mls @ 0 mls/hr IVPB PRN PRN PRN Reason: To Maintain SBP > 90mmHg Stop: 05/29/18 14:08 Norepinephrine Bitartrate (Levophed) 250 mls @ 0 mls/hr IVPB PRN PRN; Protocol PRN Reason: To maintain SBP > 90 mmHG Nicardipine HCl 25 mg/ Sodium (Chloride) 250 mls @ 0 mls/hr IVPB INF PRN; Protocol PRN Reason: To Maintain SBP< 140mmHG Nitroglycerin/Dextrose (Nitroglycerin 50 Mg/250 Ml Bot) 250 mls @ 0 mls/hr IVPB PRN PRN; Protocol PRN Reason: To Maintain SBP< 140mmHG Insulin Human Regular 100 (units/ Sodium Chloride) 101 mls @ 0 mls/hr IVPB INF JAI; Protocol Dextrose/Water (D5w) 1,000 mls @ 0 mls/hr IV INF PRN PRN Reason: PRN HYPOGLYCEMIC PROTOCOL Insulin Human Regular (Humulin R) 0 units SC Q4H PRN; Protocol PRN Reason: POST OP SLIDING SCALE Morphine Sulfate (Morphine) 2 mg SLOW IVP Q15MIN PRN PRN Reason: Severe Pain (7-10) Ondansetron HCl (Zofran) 4 mg IVP Q6H PRN PRN Reason: Nausea/Vomiting Potassium Chloride (Kcl) 20 meq IVPB PRN PRN PRN Reason: K level </= 4.0 Promethazine HCl (Phenergan) 6.25 mg IM Q4H PRN PRN Reason: Nausea/Vomiting
[2018-05-28] MEDS: CEFAZOLIN 2 GM/50 ML BAG IVPB SCH ×2 (15:53→23:29)
[2018-05-28] MEDS: Ondansetron PF 4 MG/2 ML Vial IVP PRN (16:09)
[2018-05-28] MEDS: HYDROcodone/Acetaminophen 5/325 mg Tablet PO PRN ×2 (16:09→23:14)
--- NOTE | 2018-05-28 16:16 | RAD ---
PORTABLE AP CHEST: Date: 05/28/18 HISTORY: Post open heart surgery. COMPARISON: 05/25/18. FINDINGS: There have been interval postsurgical changes related to CABG. A right subclavian central venous cath eter is noted in place. The catheter overlies the right neck, tip of which is not visualized. The pat ient is rotated to the right. Radiopaque catheters overlie the midline, probably related to mediastin al drains. Cardiac silhouette is magnified by projection. Again noted is mild elevation of the right hemidiaphragm. Lungs are otherwise clear. Patient rotation accentuates the mediastinal structures and the aortic arch compared to the prior exam. IMPRESSION: 1. Accentuation of the mediastinal structures, most likely attributable to patient rotation. Follow- up evaluation is suggested. 2. Postsurgical changes related to CABG. 3. Right subclavian central venous catheter noted in place, but the tip extends superiorly to overli e the right neck. The tip is not imaged on this exam. POS: [facility]
[2018-05-28] MEDS ORDERED: Ketorolac Tromethamine 30 MG/ML VIAL IVP PRN (17:23)
[2018-05-28] MEDS ORDERED: Ketorolac Tromethamine 30 MG/ML VIAL IVP SCH (17:30)
[2018-05-28 20:12] LABS: Hemoglobin 14.6 g/dL (14.0-18.0)
[2018-05-28 20:25] LABS: Potassium 4.1 mmol/L (3.5-5.1)
[2018-05-28] MEDS ORDERED: Famotidine/PF 20 mg/2ml Vial SLOW IVP SCH (21:00)
--- NOTE | 2018-05-28 21:16 | EKG ---
Test Reason : STAT Blood Pressure : / mmHG Vent. Rate : 052 BPM Atrial Rate : 052 BPM P-R Int : 152 ms QRS Dur : 074 ms QT Int : 496 ms P-R-T Axes : 021 052 -77 degrees QTc Int : 461 ms Sinus bradycardia T wave abnormality, consider inferior ischemia Prolonged QT Abnormal ECG When compared with ECG of 26-MAY-2018 03:04, (Unconfirmed) No significant change was found Confirmed by FIDELIA COPPOLA, . SSis ([id number]) on 05/28/2018 9:15:32 PM Referred By: Confirmed By:DR. Shana MISTRY MD
--- NOTE | 2018-05-28 21:18 | EKG ---
Test Reason : Blood Pressure : / mmHG Vent. Rate : 062 BPM Atrial Rate : 062 BPM P-R Int : 140 ms QRS Dur : 076 ms QT Int : 478 ms P-R-T Axes : 054 041 -74 degrees QTc Int : 485 ms Poor data quality, interpretation may be adversely affected Sinus rhythm with Possible Premature atrial complexes with Abberant conduction Nonspecific T wave abnormality Prolonged QT Abnormal ECG When compared with ECG of 26-MAY-2018 03:04, (Unconfirmed) Abberant conduction is now Present Confirmed by FIDELIA COPPOLA, SSis ([id number]) on 05/28/2018 9:17:54 PM Referred By: SHERYL Confirmed By:DR. Shana MISTRY MD
[2018-05-28] MEDS: Guaifenesin DM 100-10/5 ML UDCUP PO PRN (23:52)
[2018-05-29] MEDS: Fentanyl 100 MCG/2 ML VIAL SLOW IVP PRN ×3 (00:10→05:11)
--- NOTE | 2018-05-29 00:31 | CON ---
DATE OF CONSULTATION: 05/28/2018 SERVICE: Pulmonary Medicine. REASON FOR CONSULT: ICU patient. HISTORY OF PRESENT ILLNESS: The patient is a 62-year-old white male with past medical history significant for coronary artery disease. He presented to the hospital on 05/25/2018 with complaints of chest discomfort. Ultimately, he ruled in and had severe coronary artery disease. He was taken down for an operation today. He had a coronary artery graft bypass done today and is postop day zero from that procedure. He currently has some chest discomfort, which is appropriate. He also has discomfort from the Lee catheter and feels like he needs to urinate despite the fact he is making good urine output from this thing. Other than his chest discomfort, he has no complaints of fevers, chills, nausea, vomiting, diarrhea, shortness of breath. He is otherwise in his usual state of health. He arrived in the ICU on mechanical ventilation. We were able to get the tube out quite quickly. PAST MEDICAL HISTORY: 1. Hypertension. 2. Coronary artery disease. PAST SURGICAL HISTORY: Coronary artery bypass graft. SOCIAL HISTORY: Negative for alcohol, tobacco, or illicit drug use. He has no exposure to chemicals, dust, asbestos, or tuberculosis. FAMILY HISTORY: Noncontributory. ALLERGIES: NO KNOWN DRUG ALLERGIES. MEDICATIONS: List of his inpatient medications was reviewed. There were no specific updates made at this time. REVIEW OF SYSTEMS: General, head, ears, eyes, nose, throat, cardiovascular, respiratory, genitourinary, musculoskeletal, neurologic, and skin are negative except as mentioned in the HPI. PHYSICAL EXAMINATION: VITAL SIGNS: Afebrile, pulse 66, blood pressure 138/93, respirations 14, saturation 100% on 2 L nasal cannula. GENERAL: The patient is awake, alert, in no apparent distress. LUNGS: Decent air entry. Crackles are present. There is no prolonged expiratory phase or wheezing present. HEART: Normal rate, regular. ABDOMEN: Soft, nontender, nondistended. Bowel sounds are positive. MUSCULOSKELETAL: No cyanosis or clubbing. There is no pitting in the bilateral lower extremities. NEUROLOGIC: Grossly nonfocal. LABORATORY DATA: WBC 15.8, hemoglobin 13.6, platelets 215,000. INR 1.3. Basic metabolic profile is essentially otherwise unremarkable. Cannabinoids are positive but otherwise urine drug screen is negative. IMAGIN. Chest x-ray following the procedure demonstrates mediastinal drain. I do not appreciate any other tubes. The right subclavian central venous catheter is going into the neck. 2. CT of the chest with contrast demonstrates no evidence of a pulmonary embolism. No acute cardiopulmonary abnormality is otherwise appreciated. 3. Echocardiogram demonstrates normal ejection fraction. There is diastolic dysfunction. ASSESSMENT: 1. Acute hypoxic respiratory failure in the postop period. 2. Chronic diastolic heart failure. 3. Coronary artery disease, status post coronary artery bypass graft, postop day zero. DISCUSSION AND PLAN: The patient will remain in the ICU. Routine postop care will be provided. Pulmonary Critical Care will continue to follow along in this location. Job ID: [id number]
[2018-05-29] MEDS: Insulin Regular 300 UNITS/3 ML VIAL SC PRN ×2 (00:53→04:14)
[2018-05-29] MEDS: HYDROcodone/Acetaminophen 5/325 mg Tablet PO PRN (03:42)
[2018-05-29 04:20] LABS: #Lymphocytes 1.4 thou/uL (1.20-3.40); #Monocytes 1.4 thou/uL (0.11-0.59); #Neutrophils 13.9 thou/uL (1.40-6.50); %Basophils 0.3 % (0.0-1.0); %Eosinophils 0.3 % (0.0-10.0); %Lymphocytes 8.3 % (21.0-51.0); %Monocytes 8.3 % (0.0-10.0); Hemoglobin 13.7 g/dL (14.0-18.0); Mean Corpuscular HGB CONC 34.2 g/dL (32.0-36.0); Mean Corpuscular Hemoglobin 31.4 pg (27.0-31.0); Mean Corpuscular Volume 91.8 fL (78.0-98.0); Mean Platelet Volume 8.9 fL (7.4-10.4); Platelet Count 226 thou/uL (130-400); RBC Distribution Width 12.3 % (11.5-14.5); Red Blood Cell (RBC) Count 4.37 mill/uL (4.70-6.10); White Blood Cell (WBC) Count 16.7 thou/uL (4.8-10.8)
[2018-05-29 04:37] LABS: Anion Gap 11 mmol/L (10-20); BUN (Urea Nitrogen) 11 mg/dL (8.4-25.7); Calc. Creatinine Clearance 122 mL/min (70-130); Calcium 8.6 mg/dL (7.8-10.44); Carbon Dioxide 24 mmol/L (22-29); Chloride 106 mmol/L (98-107); Estimated GFR-MDRD Greater than 90; Glucose 116 mg/dL (70-105); Sodium 137 mmol/L (136-145)
[2018-05-29] MEDS: CEFAZOLIN 2 GM/50 ML BAG IVPB SCH (06:12)
[2018-05-29] MEDS: Ondansetron PF 4 MG/2 ML Vial IVP PRN (06:33)
--- NOTE | 2018-05-29 06:38 | OP ---
DATE OF PROCEDURE: 05/28/2018 PREOPERATIVE DIAGNOSIS: Coronary artery disease. PROCEDURE: Coronary artery bypass graft x4. ELECTRONIC SYSTEM ENGINEER: Marcelino. FINDINGS: The left internal mammary artery, good quality to a 1.5 mm distal LAD. Saphenous vein, good quality to a 1.25 mm diseased right coronary artery. Saphenous vein, good quality to a 1.5 mm distal OM, good quality radial to calcified 1.25 mm diagonal. TRANSFUSIONS: None. DESCRIPTION OF PROCEDURE: After adequate anesthesia had been obtained, the patient was prepped and draped. Dr. Besnon did an endovascular vein harvest to the left greater saphenous vein while I performed a radial artery harvest to the left arm after ensuring good collateral flow. Following this, median sternotomy was performed and the left internal mammary artery was harvested. It was divided distally after heparinization, passed posterior to the thymus through a hole in the pericardium. Aorta and right atrium were cannulated and carotid pulmonary bypass was instituted. Aorta was cross-clamped and a liter of cold blood cardioplegia given through the aortic root. Following this, before distal anastomoses were completed, the cross clamp removed and partial-occluding clamp placed. Two venous anastomosis performed on the aortic root and marked with a ring. To the cruz of the right coronary artery, the radial artery was anastomosed. Following this, distal anastomoses were hemostatic. The patient was weaned from cardiopulmonary bypass. Cannula was removed and aortic cannulation sites secured with a 3-0 Prolene suture. Mediastinal drains x2 were placed and the sternum was reapproximated with #7 interrupted wire using vancomycin paste on the sternal edges, platelet rich blood and platelet poor plasma. Subcutaneous tissue and skin were closed in layers. Job ID: [id number]
[2018-05-29] MEDS: Guaifenesin DM 100-10/5 ML UDCUP PO PRN (06:47)
[2018-05-29] MEDS ORDERED: HYDROcodone/Acetaminophen 10/325 mg Tablet PO PRN ×2 (07:25)
[2018-05-29] MEDS ORDERED: Mag-Al 1200 mg/1200 mg/30 ML UDCUP PO PRN (07:25)
[2018-05-29] MEDS ORDERED: Mineral Oil ENEMA PR PRN (07:25)
[2018-05-29] MEDS ORDERED: Fentanyl 100 MCG/2 ML VIAL SLOW IVP PRN (07:25)
[2018-05-29] MEDS ORDERED: Zolpidem Tartrate 5 MG TAB PO PRN (07:25)
[2018-05-29] MEDS ORDERED: Nitroglycerin 0.4 MG TAB (25 Tab Bottle) SL PRN (07:25)
[2018-05-29] MEDS ORDERED: Guaifenesin DM 100-10/5 ML UDCUP PO PRN (07:25)
[2018-05-29] MEDS ORDERED: Bisacodyl 5 MG TAB PO PRN (07:25)
[2018-05-29] MEDS ORDERED: Bisacodyl 10 MG SUPP PR PRN (07:25)
[2018-05-29 07:59] LABS: Actual Bicarbonate (HCO3a) 21.1 mEq/L (22-28); Analyzer IN Cardio OR; Base Excess (BEa) -3.9 mEq/L (-2.0 to +3.0); CO2 Tension 38.7 mmHg (35.0-45.0); Calcium, Ionized 1.12 mmol/L (1.12-1.30); Carboxyhemoglobin (COHb) 1.1 gm% (0.0-3.0); Hemoglobin (Hb) 14.4 g/dL (14.0-18.0); O2 Tension (PaO2) 390.1 mmHg (> 80.0); Potassium - ABG Lab 3.62 mmol/L (3.70-5.30); pH, Arterial 7.36 (7.35-7.45)
[2018-05-29 07:59] LABS: Actual Bicarbonate (HCO3a) 19.3 mEq/L (22-28); Analyzer IN Cardio OR; Base Excess (BEa) -3.5 mEq/L (-2.0 to +3.0); CO2 Tension 29.1 mmHg (35.0-45.0); Calcium, Ionized 1.15 mmol/L (1.12-1.30); Carboxyhemoglobin (COHb) 0.4 gm% (0.0-3.0); Hemoglobin (Hb) 14.4 g/dL (14.0-18.0); O2 Tension (PaO2) 333.6 mmHg (> 80.0); Potassium - ABG Lab 3.59 mmol/L (3.70-5.30); pH, Arterial 7.44 (7.35-7.45)
[2018-05-29 08:00] LABS: Actual Bicarbonate (HCO3v) 21 mEq/L (22-28); Analyzer IN Cardio OR; Base Excess -4.5 mEq/L (-2.0 to +3.0); Calcium, Ionized 1.01 mmol/L (1.16-1.32); Chloride (ABG LAB) 108 mmol/L (98-106); Hemoglobin (Hb) 10.2 g/dL (13.1-17.2); Potassium - ABG Lab 4.01 mmol/L (3.70-5.30); Sodium 135.5 mmol/L (133-146); pH (venous) 7.35 (7.32-7.43)
[2018-05-29 08:01] LABS: Actual Bicarbonate (HCO3a) 22.5 mEq/L (22-28); Analyzer IN Cardio OR; Base Excess (BEa) -2.1 mEq/L (-2.0 to +3.0); CO2 Tension 37.8 mmHg (35.0-45.0); Calcium, Ionized 0.96 mmol/L (1.12-1.30); Carboxyhemoglobin (COHb) 0.1 gm% (0.0-3.0); Hemoglobin (Hb) 10.2 g/dL (14.0-18.0); Potassium - ABG Lab 3.94 mmol/L (3.70-5.30); pH, Arterial 7.39 (7.35-7.45)
[2018-05-29 08:01] LABS: Actual Bicarbonate (HCO3a) 22.5 mEq/L (22-28); Analyzer IN Cardio OR; Base Excess (BEa) -2.6 mEq/L (-2.0 to +3.0); CO2 Tension 40.2 mmHg (35.0-45.0); Carboxyhemoglobin (COHb) 0.3 gm% (0.0-3.0); Hemoglobin (Hb) 10.7 g/dL (14.0-18.0); O2 Tension (PaO2) 432.7 mmHg (> 80.0); Potassium - ABG Lab 4.53 mmol/L (3.70-5.30); pH, Arterial 7.37 (7.35-7.45)
[2018-05-29 08:01] LABS: Actual Bicarbonate (HCO3a) 19.3 mEq/L (22-28); Analyzer IN Cardio OR; Base Excess (BEa) -4.3 mEq/L (-2.0 to +3.0); CO2 Tension 30.6 mmHg (35.0-45.0); Carboxyhemoglobin (COHb) 0.4 gm% (0.0-3.0); Hemoglobin (Hb) 11.2 g/dL (14.0-18.0); O2 Tension (PaO2) 291.3 mmHg (> 80.0); Potassium - ABG Lab 3.39 mmol/L (3.70-5.30); pH, Arterial 7.42 (7.35-7.45)
[2018-05-29 08:21] LABS: Puncture Site ALINE
[2018-05-29 08:21] LABS: Puncture Site ALINE
[2018-05-29 08:22] LABS: Puncture Site ALINE
[2018-05-29 08:22] LABS: Puncture Site ALINE
[2018-05-29 08:23] LABS: Puncture Site ALINE
[2018-05-29] MEDS: Famotidine 20 MG TAB PO SCH ×2 (08:37→21:35)
[2018-05-29] MEDS: Metoprolol Tartrate 25 MG TAB PO SCH ×2 (08:38→21:35)
[2018-05-29] MEDS: Aspirin 325 mg Enteric Coated Tablet PO SCH ×2 (08:39→15:45)
[2018-05-29] MEDS: Polyethylene Glycol 3350 17 GM Packet PO SCH (08:40)
[2018-05-29] MEDS ORDERED: Aspirin 325 MG TAB PO SCH (09:00)
--- NOTE | 2018-05-29 09:04 | RAD ---
AP VIEW CHEST: Date: 05/29/18 HISTORY: Status post open heart surgery. FINDINGS: Comparison made to previous exam from 05/28/18. AP view of chest demonstrates sternotomy wires seen. Mediastinal surgical drains in place. A right subclavian central line which has been placed migrates upwards in the right lower neck and up the right jugular vein. Cardiomegaly and pulmonary vascular congestion seen. No evidence of effusion s or pneumonia seen. IMPRESSION: Stable AP view of chest. POS: [facility]
--- NOTE | 2018-05-29 12:55 | PDOC.PN ---
- Subjective Encounter Start Date: 05/29/18 Encounter Start Time: 09:00 Pt sen for followup re: NSTEMI. Reports soreness at surgical site. No fevers or chills. - Objective Vital Signs & Weight: Vital Signs (12 hours) Temp Pulse BP Pulse Ox 05/29/18 07:44 98 05/29/18 04:00 99.7 F H 05/29/18 03:48 71 144/81 H Weight Weight 190 lb 11.198 oz Most Recent Monitor Data Heart Rate from ECG 77 NIBP 118/85 NIBP BP-Mean 96 Respiration from ECG 24 SpO2 95 I&O: 05/28/18 05/29/18 05/30/18 06:59 06:59 06:59 Intake Total 2580 821 760 Output Total 0125 370 Balance 2580 -1894 390 Result Diagrams: 05/29/18 03:59 05/29/18 03:59 Additional Labs: Accuchecks 05/29/18 05/29/18 05/28/18 04:09 00:20 20:25 POC Glucose 124 H 126 H 124 H 05/28/18 05/28/18 05/28/18 16:49 14:40 13:48 POC Glucose 129 H 103 149 H 05/28/18 05/28/18 05/28/18 13:17 12:39 12:04 POC Glucose 172 H 135 H 123 H 05/28/18 11:06 POC Glucose 94 Phys Exam - Physical Examination Constitutional: NAD HEENT: moist MMs Neck: supple Respiratory: clear to auscultation bilateral Cardiovascular: RRR Gastrointestinal: soft Neurological: moves all 4 limbs Psychiatric: normal affect Dx/Plan (1) NSTEMI (non-ST elevated myocardial infarction) Code(s): I21.4 - NON-ST ELEVATION (NSTEMI) MYOCARDIAL INFARCTION Status: Acute Comment: s/p CABG yesterday, doing well (2) HTN (hypertension) Code(s): I10 - ESSENTIAL (PRIMARY) HYPERTENSION Status: Chronic Comment: controlled - Plan * . Review of Systems - Review of Systems Respiratory: negative: Cough, Shortness of Breath, SOB with Excertion, Pleuritic Pain, Wheezing Cardiovascular: chest pain. negative: palpitations, orthopnea, paroxysmal nocturnal dyspnea, edema, light headedness - Medications/Allergies Allergies/Adverse Reactions: Allergies Allergy/AdvReac Type Severity Reaction Status Date / Time No Known Drug Allergies Allergy Verified 05/25/18 17:07 Medications: Current Medications Hydrocodone Bitart/Acetaminophen ([place] 10/325) 1 tab PO Q4H PRN PRN Reason: Pain 1-5 Hydrocodone Bitart/Acetaminophen ([place] 10/325) 2 tab PO Q4H PRN PRN Reason: Pain 6-10 Last Admin: 05/29/18 08:39 Dose: 2 tab Al Hydroxide/Mg Hydroxide (Maalox) 30 ml PO Q4H PRN PRN Reason: Indigestion Aspirin (Ecotrin) 325 mg PO DAILY [facility] Last Admin: 05/29/18 08:39 Dose: 325 mg Atorvastatin Calcium (Lipitor) 10 mg PO HS [facility] Bisacodyl (Dulcolax) 10 mg PO Q12H PRN PRN Reason: Constipation Bisacodyl (Dulcolax) 10 mg [place] Q12H PRN PRN Reason: Constipation Diphenhydramine HCl (Benadryl) 25 mg PO Q6H PRN PRN Reason: Itching & Insomnia or Zia Rinku Famotidine (Pepcid) 20 mg PO BID [facility] Last Admin: 05/29/18 08:37 Dose: 20 mg Fentanyl (Sublimaze) 50 mcg SLOW IVP Q2H PRN PRN Reason: Severe breakthrough pain Guaifenesin/Dextromethorphan (Robitussin Dm) 15 ml PO Q4H PRN PRN Reason: Cough Ketorolac Tromethamine (Toradol) 15 mg IVP Q6HR [facility] Stop: 05/31/18 12:01 Metoprolol Tartrate (Lopressor) 12.5 mg PO BID [facility] Last Admin: 05/29/18 08:38 Dose: 12.5 mg Mineral Oil (Fleet Mineral Oil) 133 ml MA DAILYPRN PRN PRN Reason: Constipation Nitroglycerin (Nitrostat) 0.4 mg SL Q5MIN PRN PRN Reason: Chest Pain Polyethylene Glycol (Miralax) 17 gm PO DAILY [facility] Last Admin: 05/29/18 08:40 Dose: 17 gm Zolpidem Tartrate (Ambien) 5 mg PO HSPRN PRN PRN Reason: Insomnia
[2018-05-29] MEDS: Ketorolac Tromethamine 30 MG/ML VIAL IVP SCH ×2 (13:07→17:05)
[2018-05-29] MEDS ORDERED: Senokot S 8.6-50 MG TAB PO SCH (13:15)
--- NOTE | 2018-05-29 14:09 | PRG ---
DATE OF SERVICE: 05/29/2018 SERVICE: Pulmonary Medicine. INTERVAL HISTORY: The patient is doing really well from respiratory standpoint. He has been weaned down to room air. He denies having any significant chest discomfort other than routine postop pain. The Lee catheter has been removed and ever since then, he has not had any more dysuria or urgency. He has not had a bowel movement since he has been here for the last four days. He is typically quite regular and has a bowel movement on a daily basis. That being said, he has not had much p.o. intake. He had not gotten his appetite back yet. OBJECTIVE: VITAL SIGNS: Afebrile with a T-max of 99.7. Pulse 77, blood pressure 118/85, respirations 24, saturation 95% on room air. GENERAL: The patient is awake and alert, in no apparent distress. LUNGS: Excellent air entry. Minimal dependent crackles are present. There is no prolonged expiratory phase or wheezing present. HEART: Normal rate and regular. ABDOMEN: Soft, nontender, and nondistended. Bowel sounds are positive. MUSCULOSKELETAL: No cyanosis or clubbing. There is no pitting in the bilateral lower extremities. NEUROLOGIC: Grossly nonfocal. LABORATORY DATA: WBC uptrending to 16.7, hemoglobin 13.7, and platelets 226,000. Basic metabolic profile is essentially unremarkable. Creatinine is 0.79. Cannabinoids are positive on the urine drug screen, but otherwise the UDS is negative. IMAGING STUDIES: Chest x-ray demonstrates right subclavian central venous catheter goes up into the neck. Sternotomy wires are noted. There is volume loss on the right compared to the left, likely representing some degree of atelectasis in the right base. Mediastinal drain is noted. There is also a left-sided thoracostomy tube present. Minimal cephalization is noted. ASSESSMENT: 1. Acute hypoxic respiratory failure, resolved. 2. Chronic diastolic heart failure. 3. Coronary artery disease, status post coronary artery bypass graft, postop day 1. 4. Malposition of right subclavian catheter. DISCUSSION AND PLAN: The patient is doing absolutely wonderful in postop period. We will continue to trend his white blood cell count to make sure it turns down through time. If it goes up and he develops any other findings consistent with sepsis, panculture and empiric antibiotics will be considered. We will schedule some senna for the next day and a half to see if we can promote a bowel movement. If we do not have one within a couple of days and the patient has the feeling like he needs to, we can escalate our therapy. Pulmonary will continue following for the time being. Job ID: [id number]
[2018-05-29] MEDS: Nitroglycerin 2% Ointment 1 INCH/1 GM Packet TOP SCH ×2 (15:44→15:45)
[2018-05-29] MEDS ORDERED: Atorvastatin Calcium 10 MG TAB PO SCH (21:00)
[2018-05-29] MEDS: Senokot S 8.6-50 MG TAB PO SCH (21:35)
[2018-05-30] MEDS: Ketorolac Tromethamine 30 MG/ML VIAL IVP SCH ×4 (00:17→17:02)
[2018-05-30 05:34] LABS: #Eosinphils 0.3 thou/uL (0.0-0.7); #Lymphocytes 2.4 thou/uL (1.20-3.40); #Monocytes 1.2 thou/uL (0.11-0.59); %Basophils 0.4 % (0.0-1.0); %Eosinophils 2.2 % (0.0-10.0); %Lymphocytes 20.2 % (21.0-51.0); %Monocytes 10.1 % (0.0-10.0); %Neutrophils 67.1 % (42.0-75.0); Hemoglobin 12.2 g/dL (14.0-18.0); Mean Corpuscular Hemoglobin 31.3 pg (27.0-31.0); Mean Platelet Volume 8.9 fL (7.4-10.4); Platelet Count 229 thou/uL (130-400); RBC Distribution Width 12.3 % (11.5-14.5); White Blood Cell (WBC) Count 11.9 thou/uL (4.8-10.8)
[2018-05-30] MEDS: Polyethylene Glycol 3350 17 GM Packet PO SCH (08:47)
[2018-05-30] MEDS: Metoprolol Tartrate 25 MG TAB PO SCH ×2 (08:47→20:50)
[2018-05-30] MEDS: Famotidine 20 MG TAB PO SCH ×2 (08:47→20:51)
[2018-05-30] MEDS: Aspirin 325 mg Enteric Coated Tablet PO SCH (08:47)
[2018-05-30] MEDS: Senokot S 8.6-50 MG TAB PO SCH (08:47)
--- NOTE | 2018-05-30 11:02 | PRG ---
DATE OF SERVICE: 05/30/2018 SERVICE: Pulmonary Medicine. INTERVAL HISTORY: The patient is doing outstanding from respiratory standpoint. He is breathing comfortably. He has been up walking in the halls with no dyspnea or lightheadedness. He has no chest pain, fevers, or chills. There has been no interval change to his condition. PHYSICAL EXAMINATION: VITAL SIGNS: Afebrile, pulse 88, blood pressure 124/79, respirations 16, and saturation 96% on room air. GENERAL: The patient is awake and alert, in no apparent distress. LUNGS: Excellent air entry. There is no prolonged expiratory phase, wheezing, rhonchi, or crackles present. HEART: Normal rate and regular. ABDOMEN: Soft, nontender, and nondistended. Bowel sounds are positive. MUSCULOSKELETAL: No cyanosis or clubbing. No pitting in the bilateral lower extremities. NEUROLOGIC: Grossly nonfocal. LABORATORY DATA: WBC downtrending to 11.9, hemoglobin 12.2, and platelets 229,000. ASSESSMENT: 1. Acute hypoxic respiratory failure, resolved. 2. Chronic diastolic heart failure. 3. Coronary artery disease, status post coronary artery bypass graft, postop day 2. DISCUSSION AND PLAN: The patient is doing wonderful from respiratory standpoint. At this point, he has no further requirements for inpatient pulmonary critical care opinion, and I will sign off. Please call with additional questions or concerns moving forward. Job ID: [id number]
--- NOTE | 2018-05-30 11:40 | PDOC.PN ---
- Subjective Encounter Start Date: 05/30/18 Encounter Start Time: 07:20 Pt seen for followup re; NSTEMI. In good spirits, feels well. - Objective MAR Reviewed: Yes Vital Signs & Weight: Vital Signs (12 hours) Temp Pulse Resp BP Pulse Ox 05/30/18 07:20 98.0 F 88 16 124/79 96 05/30/18 04:00 98.4 F 77 18 114/60 97 05/29/18 23:46 98.7 F 81 18 119/88 97 Weight Weight 190 lb 11.198 oz Most Recent Monitor Data Heart Rate from ECG 83 NIBP 148/100 NIBP BP-Mean 116 Respiration from ECG 18 SpO2 97 I&O: 05/29/18 05/30/18 05/31/18 06:59 06:59 06:59 Intake Total 821 1790 Output Total 2715 820 Balance -1894 970 Result Diagrams: 05/30/18 05:07 05/29/18 03:59 EKG Reviewed by me: Yes (Tele: NSR) Phys Exam - Physical Examination Constitutional: NAD HEENT: moist MMs Neck: supple Respiratory: clear to auscultation bilateral Cardiovascular: RRR Gastrointestinal: soft Neurological: moves all 4 limbs Psychiatric: normal affect Dx/Plan (1) NSTEMI (non-ST elevated myocardial infarction) Code(s): I21.4 - NON-ST ELEVATION (NSTEMI) MYOCARDIAL INFARCTION Status: Acute Comment: s/p CABG, doing well. mediastinal tube removed. Pt is on aspirin, beta jaron and statin. (2) HTN (hypertension) Code(s): I10 - ESSENTIAL (PRIMARY) HYPERTENSION Status: Chronic Comment: controlled - Plan * . Review of Systems - Review of Systems Cardiovascular: negative: chest pain, palpitations, orthopnea, paroxysmal nocturnal dyspnea, edema, light headedness Gastrointestinal: negative: Nausea, Vomiting, Abdominal Pain, Diarrhea, Constipation, Melena, Hematochezia - Medications/Allergies Allergies/Adverse Reactions: Allergies Allergy/AdvReac Type Severity Reaction Status Date / Time No Known Drug Allergies Allergy Verified 05/25/18 17:07 Medications: Current Medications Hydrocodone Bitart/Acetaminophen ([address] 10/325) 1 tab PO Q4H PRN PRN Reason: Pain 1-5 Hydrocodone Bitart/Acetaminophen ([address] 10/325) 2 tab PO Q4H PRN PRN Reason: Pain 6-10 Last Admin: 05/29/18 08:39 Dose: 2 tab Al Hydroxide/Mg Hydroxide (Maalox) 30 ml PO Q4H PRN PRN Reason: Indigestion Aspirin (Ecotrin) 325 mg PO DAILY [facility] Last Admin: 05/30/18 08:47 Dose: 325 mg Atorvastatin Calcium (Lipitor) 20 mg PO HS [facility] Bisacodyl (Dulcolax) 10 mg PO Q12H PRN PRN Reason: Constipation Bisacodyl (Dulcolax) 10 mg [place] Q12H PRN PRN Reason: Constipation Diphenhydramine HCl (Benadryl) 25 mg PO Q6H PRN PRN Reason: Itching & Insomnia or Zia Rinku Famotidine (Pepcid) 20 mg PO BID [facility] Last Admin: 05/30/18 08:47 Dose: 20 mg Fentanyl (Sublimaze) 50 mcg SLOW IVP Q2H PRN PRN Reason: Severe breakthrough pain Guaifenesin/Dextromethorphan (Robitussin Dm) 15 ml PO Q4H PRN PRN Reason: Cough Ketorolac Tromethamine (Toradol) 15 mg IVP Q6HR [facility] Stop: 05/31/18 12:01 Last Admin: 05/30/18 11:28 Dose: 15 mg Metoprolol Tartrate (Lopressor) 12.5 mg PO BID [facility] Last Admin: 05/30/18 08:47 Dose: 12.5 mg Mineral Oil (Fleet Mineral Oil) 133 ml MD DAILYPRN PRN PRN Reason: Constipation Nitroglycerin (Nitrostat) 0.4 mg SL Q5MIN PRN PRN Reason: Chest Pain Polyethylene Glycol (Miralax) 17 gm PO DAILY [facility] Last Admin: 05/30/18 08:47 Dose: 17 gm Zolpidem Tartrate (Ambien) 5 mg PO HSPRN PRN PRN Reason: Insomnia
[2018-05-30] MEDS: diphenhydrAMINE 25 MG CAP PO PRN (19:08)
[2018-05-30] MEDS: Atorvastatin Calcium 10 MG TAB PO SCH (20:50)
--- NOTE | 2018-05-30 21:46 | EKG ---
Test Reason : POST CABG Blood Pressure : / mmHG Vent. Rate : 068 BPM Atrial Rate : 068 BPM P-R Int : 154 ms QRS Dur : 074 ms QT Int : 470 ms P-R-T Axes : 057 064 249 degrees QTc Int : 499 ms Sinus rhythm with Premature atrial complexes T wave abnormality, consider inferolateral ischemia Prolonged QT Abnormal ECG When compared with ECG of 26-MAY-2018 06:45, (Unconfirmed) Inverted T waves have replaced nonspecific T wave abnormality in Inferior leads Confirmed by Kartik LOZOYA ([id number]) on 05/30/2018 9:46:53 PM Referred By: GABRIEL Confirmed By:Kartik LOZOYA
[2018-05-31] MEDS: Ketorolac Tromethamine 30 MG/ML VIAL IVP SCH ×3 (00:22→12:11)
[2018-05-31] MEDS ORDERED: Milk Of Magnesia 30 ML UDCUP PO PRN (07:05)
[2018-05-31] MEDS ORDERED: Furosemide 20 MG TAB PO SCH (07:45)
[2018-05-31] MEDS ORDERED: Potassium Chloride 20 MEQ TAB PO SCH (07:45)
[2018-05-31] MEDS ORDERED: Magnesium Citrate 300 ML BOT PO SCH (07:45)
[2018-05-31] MEDS: Famotidine 20 MG TAB PO SCH ×2 (08:54→20:56)
[2018-05-31] MEDS: Aspirin 325 mg Enteric Coated Tablet PO SCH (08:55)
[2018-05-31] MEDS: Metoprolol Tartrate 25 MG TAB PO SCH (08:55)
[2018-05-31] MEDS: Polyethylene Glycol 3350 17 GM Packet PO SCH (08:55)
--- NOTE | 2018-05-31 10:13 | PDOC.PN ---
- Subjective Encounter Start Date: 05/31/18 Encounter Start Time: 07:40 Pt seen for followup re: NSTEMI. Feels well. c/o constipation. - Objective Vital Signs & Weight: Vital Signs (12 hours) Temp Pulse Resp BP BP Pulse Ox 05/31/18 08:21 98.9 F 76 18 144/79 H 98 05/31/18 04:00 99.2 F 71 16 153/82 H 99 05/31/18 00:20 98.9 F 79 18 135/85 98 Weight Weight 190 lb 14.4 oz Most Recent Monitor Data Heart Rate from ECG 83 NIBP 148/100 NIBP BP-Mean 116 Respiration from ECG 18 SpO2 97 I&O: 05/30/18 05/31/18 06/01/18 06:59 06:59 06:59 Intake Total 1790 850 Output Total 820 Balance 970 850 Result Diagrams: 05/30/18 05:07 05/29/18 03:59 Phys Exam - Physical Examination Constitutional: NAD HEENT: moist MMs Neck: supple Respiratory: clear to auscultation bilateral Cardiovascular: RRR Gastrointestinal: soft Neurological: moves all 4 limbs Psychiatric: normal affect Dx/Plan (1) NSTEMI (non-ST elevated myocardial infarction) Code(s): I21.4 - NON-ST ELEVATION (NSTEMI) MYOCARDIAL INFARCTION Status: Acute Comment: s/p CABG, doing well. Continue aspirin, beta jaron and statin. (2) Constipated Code(s): K59.00 - CONSTIPATION, UNSPECIFIED Status: Acute Comment: PRN laxatives (3) HTN (hypertension) Code(s): I10 - ESSENTIAL (PRIMARY) HYPERTENSION Status: Chronic Comment: controlled - Plan * . Review of Systems - Review of Systems Cardiovascular: negative: chest pain, palpitations, orthopnea, paroxysmal nocturnal dyspnea, edema, light headedness Gastrointestinal: Constipation. negative: Nausea, Vomiting, Abdominal Pain, Diarrhea, Melena, Hematochezia - Medications/Allergies Allergies/Adverse Reactions: Allergies Allergy/AdvReac Type Severity Reaction Status Date / Time No Known Drug Allergies Allergy Verified 05/25/18 17:07 Medications: Current Medications Hydrocodone Bitart/Acetaminophen (Bellerose 10/325) 1 tab PO Q4H PRN PRN Reason: Pain 1-5 Hydrocodone Bitart/Acetaminophen (Bellerose 10/325) 2 tab PO Q4H PRN PRN Reason: Pain 6-10 Last Admin: 05/29/18 08:39 Dose: 2 tab Al Hydroxide/Mg Hydroxide (Maalox) 30 ml PO Q4H PRN PRN Reason: Indigestion Aspirin (Ecotrin) 325 mg PO DAILY [facility] Last Admin: 05/31/18 08:55 Dose: 325 mg Atorvastatin Calcium (Lipitor) 20 mg PO HS [facility] Last Admin: 05/30/18 20:50 Dose: 20 mg Bisacodyl (Dulcolax) 10 mg PO Q12H PRN PRN Reason: Constipation Last Admin: 05/30/18 19:08 Dose: 10 mg Bisacodyl (Dulcolax) 10 mg ID Q12H PRN PRN Reason: Constipation Diphenhydramine HCl (Benadryl) 25 mg PO Q6H PRN PRN Reason: Itching & Insomnia or Zia Rinku Last Admin: 05/30/18 19:08 Dose: 25 mg Famotidine (Pepcid) 20 mg PO BID [facility] Last Admin: 05/31/18 08:54 Dose: 20 mg Fentanyl (Sublimaze) 50 mcg SLOW IVP Q2H PRN PRN Reason: Severe breakthrough pain Guaifenesin/Dextromethorphan (Robitussin Dm) 15 ml PO Q4H PRN PRN Reason: Cough Ketorolac Tromethamine (Toradol) 15 mg IVP Q6HR [facility] Stop: 05/31/18 12:01 Last Admin: 05/31/18 05:44 Dose: 15 mg Magnesium Hydroxide (Milk Of Magnesium) 30 ml PO DAILYPRN PRN PRN Reason: Constipation Metoprolol Tartrate (Lopressor) 12.5 mg PO BID [facility] Last Admin: 05/31/18 08:55 Dose: 12.5 mg Mineral Oil (Fleet Mineral Oil) 133 ml ID DAILYPRN PRN PRN Reason: Constipation Last Admin: 05/31/18 03:01 Dose: 133 ml Nitroglycerin (Nitrostat) 0.4 mg SL Q5MIN PRN PRN Reason: Chest Pain Polyethylene Glycol (Miralax) 17 gm PO DAILY [facility] Last Admin: 05/31/18 08:55 Dose: 17 gm Zolpidem Tartrate (Ambien) 5 mg PO HSPRN PRN PRN Reason: Insomnia
[2018-05-31] MEDS: diphenhydrAMINE 25 MG CAP PO PRN ×2 (12:17→22:30)
[2018-05-31] MEDS: Atorvastatin Calcium 10 MG TAB PO SCH (20:56)
[2018-05-31] MEDS: Metoprolol Tartrate 50 MG TAB PO SCH (20:56)
[2018-05-31] MEDS: Acetaminophen 325 MG TAB PO PRN (22:30)
[2018-06-01] MEDS: Acetaminophen 325 MG TAB PO PRN (05:33)
[2018-06-01 07:54] VITALS: BP 146/92; TEMP 98.3
[2018-06-01] MEDS: Aspirin 325 mg Enteric Coated Tablet PO SCH (07:54)
[2018-06-01] MEDS: Famotidine 20 MG TAB PO SCH (07:55)
[2018-06-01] MEDS: Polyethylene Glycol 3350 17 GM Packet PO SCH (07:55)
[2018-06-01] MEDS: Metoprolol Tartrate 50 MG TAB PO SCH (07:55)
--- NOTE | 2018-06-02 05:45 | DIS ---
DATE OF ADMISSION: 05/25/2018 DATE OF DISCHARGE: 06/01/2018 HOSPITAL COURSE: This is a 62-year-old gentleman with hypertension and non-STEMI, admitted with troponin peak of 12 after at least a couple of days of chest pain. He had incomplete revascularization due to small branch vessels with disease, primarily involving the circumflex system. He had coronary artery bypass grafting performed on the day following his cardiac catheterization to the LAD, OM2, right coronary artery and a radial to a diagonal. His postoperative course was rather unremarkable. He did have a small amount of drainage from his upper chest incision, amounting to about a quarter size staying over 24 hours. He will be discharged to home on aspirin one a day, metoprolol 50 b.i.d., and atorvastatin 20 a day. Discharge and followup instructions have been given. Job ID: [id number]
--- NOTE | 2018-06-02 12:06 | EKG ---
Test Reason : Blood Pressure : / mmHG Vent. Rate : 059 BPM Atrial Rate : 059 BPM P-R Int : 146 ms QRS Dur : 074 ms QT Int : 458 ms P-R-T Axes : 052 031 -28 degrees QTc Int : 453 ms Sinus bradycardia with sinus arrhythmia Nonspecific T wave abnormality Abnormal ECG Confirmed by MANUEL LOPEZ DO ([id number]), film editor TEQUILA PATRICK ([id number]) on 06/02/2018 12:05:38 PM Referred By: Confirmed By:MANUEL LOPEZ DO
== END 2018-06-01 11:05 | disposition home or self-care (01) | DRG 233 ==
LOC: ERS 14:51 → 2SE 16:28 → CCU 05-28 07:57 → 2NO 05-29 15:40
PROVIDERS: ADMIT Internal Medicine; ATTEND Internal Medicine
PROC: 4A023N7 Measurement of Cardiac Sampling and Pressure, Left Heart, Percutaneous Approach (ICD-10-PCS; 2018-05-26)
PROC: B2161ZZ Fluoroscopy of Right and Left Heart using Low Osmolar Contrast (ICD-10-PCS; 2018-05-26)
PROC: B2151ZZ Fluoroscopy of Left Heart using Low Osmolar Contrast (ICD-10-PCS; 2018-05-26)
PROC: 4A023N8 Measurement of Cardiac Sampling and Pressure, Bilateral, Percutaneous Approach (ICD-10-PCS; 2018-05-27)
PROC: B246ZZ4 Ultrasonography of Right and Left Heart, Transesophageal (ICD-10-PCS; 2018-05-27)
PROC: 02100AW Bypass Coronary Artery, One Artery from Aorta with Autologous Arterial Tissue, Open Approach (ICD-10-PCS; principal; 2018-05-28)
PROC: 021109W Bypass Coronary Artery, Two Arteries from Aorta with Autologous Venous Tissue, Open Approach (ICD-10-PCS; 2018-05-28)
PROC: 02100Z9 Bypass Coronary Artery, One Artery from Left Internal Mammary, Open Approach (ICD-10-PCS; 2018-05-28)
PROC: 03BC3ZZ Excision of Left Radial Artery, Percutaneous Approach (ICD-10-PCS; 2018-05-28)
PROC: 06BQ3ZZ Excision of Left Saphenous Vein, Percutaneous Approach (ICD-10-PCS; 2018-05-28)
PROC: 5A1221Z Performance of Cardiac Output, Continuous (ICD-10-PCS; 2018-05-28)
DX: I21.4 Non-ST elevation (NSTEMI) myocardial infarction (principal); J96.01 Acute respiratory failure with hypoxia; I50.32 Chronic diastolic (congestive) heart failure; I47.2 Ventricular tachycardia; I25.110 Atherosclerotic heart disease of native coronary artery with unstable angina pectoris; I11.0 Hypertensive heart disease with heart failure; M10.9 Gout, unspecified; D72.829 Elevated white blood cell count, unspecified; I16.0 Hypertensive urgency; Y83.2 Surgical operation with anastomosis, bypass or graft as the cause of abnormal reaction of the patient, or of later complication, without mention of misadventure at the time of the procedure; Y71.3 Surgical instruments, materials and cardiovascular devices (including sutures) associated with adverse incidents; Y92.239 Unspecified place in hospital as the place of occurrence of the external cause; K59.00 Constipation, unspecified; T46.1X6A Underdosing of calcium-channel blockers, initial encounter; E78.2 Mixed hyperlipidemia
CPT/HCPCS: 36415; 36416; 36430; 71045; 71275; 80048; 80061; 80306; 82805; 83036; 83735; 84484; 85025; 85379; 85610; 85730; 86850; 86900; 86901; 90471; 90686; 90732; 93005; 93010; 93306; 93458; 93798; 94002; 99152; 99153; C1769; G0008; G0009; J0360; J1100; J1642; J1644; J1650; J1815; J1885; J2001; J2150; J2250; J2405; J2440; J2704; J2720; J3010; J3370; J3475; J3480; J7050; P9045; S0017; S0028